=== PATIENT | female | born 1960 | race Caucasian/White ===

== ENCOUNTER 2016-11-18 10:04 | Day surgery (SDC) | payer OTHER ==
[~2016-11-18] VITALS: Ht 157.5 cm; Wt 72.6 kg
[~2016-11-18 10:04] MED LIST: ALBU8.5H3 INH; ASPI-664 PO; AZIT250T94 PO; CALC1TAB80 PO; CARAS PO; GEMF600T60 PO; OMEP20CA9 PO; PRED20TA PO; TRIA1TAB PO
[2016-11-18 10:54] VITALS: Ht 157.5 cm; Wt 72.6 kg
[2016-11-18] MEDS ORDERED: DETROL LA (11:16)
[2016-11-18] MEDS ORDERED: ASPIRIN (11:16)
[2016-11-18] MEDS ORDERED: HCTZ (11:16)
[2016-11-18] MEDS ORDERED: DULCOLAX (11:16)
[2016-11-18 11:29] VITALS: BP 122/77; PULSE 63; RESP 18
[2016-11-18] MEDS ORDERED: FENTAnyl 50 MCG/ML VIAL ONE (12:13)
[2016-11-18] MEDS ORDERED: MIDAZOLAM 1 MG/ML 2 ML INJ ONE ×2 (12:13)
[2016-11-18 12:44] VITALS: BP 118/73; PULSE 57; RESP 18
--- NOTE | 2016-11-18 16:35 | GILP ---
DATE OF PROCEDURE: 11/18/2016 NAME OF PROCEDURES: 1. Esophagogastroduodenoscopy and biopsy. 2. Colonoscopy and biopsy. SURGEON: Manrpeet Echeverria MD PREOPERATIVE DIAGNOSES: 1. Abdominal pain. 2. Change in the bowel habit. POSTOPERATIVE DIAGNOSES 1. Gastritis with erosions. 2. Gastric mucosal biopsies were taken for Helicobacter pylori test. 3. Colonoscopy all the way to the cecum. 4. Two small transverse colon polyps were removed using the biopsy forceps. 5. Internal hemorrhoids. INDICATION FOR THE PROCEDURE: Ms. Geeta Causey is a 56-year-old female patient who had upper abdo horace pain, not responding to therapy. She also noticed a change in the bowel habit. She had histo ry of colon polyps. The patient was scheduled for endoscopy and colonoscopy for further evaluation. The procedures and possible complications are well explained to the patient. She understood and con sented to the procedure. DESCRIPTION OF PROCEDURE: Under the influence of fentanyl and Versed, the gastroscope was carefully introduced into the esophagus and under direct vision, it was advanced to the stomach and through t he pylorus into the duodenal bulb and descending duodenum. FINDINGS: ESOPHAGUS: The mucosa was normal. STOMACH: The patient had gastritis with erosions. Gastric mucosal biopsies were taken for H. pylor i test. DUODENUM: Normal. The colonoscope was carefully introduced in the rectum and under direct vision, it was advanced all the way to the cecum. FINDINGS: The patient had 2 small transverse colon polyps and they were removed using the biopsy fo rceps. The patient was noted to have internal hemorrhoids. She tolerated the procedures very well and there was no complication from the procedures. At the en d of the procedures, she was awake with stable vital signs and she was discharged home to the care o f her family. IMPRESSION: Please see postoperative diagnoses. PLAN: 1. Omeprazole 40 mg p.o. q.a.m. 2. Linzess 145 mcg p.o. daily a.m. before breakfast. 3. Await histopathology reports. 4. Screening colonoscopy in 5 years. Dictated By: MANPREET SCHNEIDER/CARLY Conf#: [id number] DID#: [id number]
== END 2016-11-18 13:15 | disposition home or self-care (01) ==
LOC: GIL 10:04
PROVIDERS: ATTEND Internal Medicine Gastroenterology
DX: Z12.11 Encounter for screening for malignant neoplasm of colon (principal); D12.3 Benign neoplasm of transverse colon; K64.8 Other hemorrhoids; K29.60 Other gastritis without bleeding
CPT/HCPCS: 43239; 45380; 87081; 88305; J2250; J3010; Z7610

== ENCOUNTER 2017-08-10 08:44 | Emergency (ER) | payer OTHER ==
[~2017-08-10] VITALS: Ht 157.5 cm; Wt 74.0 kg
[~2017-08-10 08:44] MED LIST changes: -ALBU8.5H3 INH; +ASPIRIN; -AZIT250T94 PO; -CALC1TAB80 PO; -CARAS PO; +DETROL LA; +DULCOLAX; +HCTZ; -PRED20TA PO; -TRIA1TAB PO
[2017-08-10 08:47] VITALS: Ht 157.5 cm; Wt 74.0 kg
[2017-08-10] MEDS ORDERED: AZIT250T94 PO (09:30)
[2017-08-10] MEDS ORDERED: ALBU18HF INHALATION (09:30)
[2017-08-10] MEDS ORDERED: D-ME473S2 PO (09:31)
--- NOTE | 2017-08-10 10:00 | ERD ---
ER Documentation Chief Complaint Date/Time DATE: 08/10/17 TIME: 09:55 Chief Complaint cough and bodyache x 3 days HPI This patient is a 56-year-old female presenting to the emergency department with complaints of cough and body ache intermittently for the past 3 days. She states her symptoms began with body aches, however then she began with a nonproductive cough today. She reports chest pain only while coughing. She also feels some mild shortness of breath only when she has persistent coughing. She has had similar symptoms in the past. She has had intermittent subjective fevers at home. Symptoms have shown no improvement. She has been using ovok-dii-rjullvo medication with no relief of symptoms. She denies chest pain on exertion, dizziness, nausea, vomiting, diarrhea, urinary symptoms, or other symptoms currently. ROS All systems reviewed and are negative except as per history of present illness. Medications Home Meds Active Scripts Dextromethorphan Hb-Promethazine Hcl* (Promethazine DM* Syrup) 473 Ml Syrup, 5 ML PO Q6 Y for COUGH, #120 ML Prov:HIRO ARMSTRONG PA-C 08/10/17 Albuterol Sulfate* (Ventolin HFA*) 18 Gm Hfa.aer.ad, 2 PUFF INHALATION Q4H, #1 INHALER Prov:HIRO ARMSTRONG PA-C 08/10/17 Azithromycin* (Zithromax*) 250 Mg Tablet, 250 MG PO .ZPACK DIRECTED, #6 TAB TAKE 500 MG (2 TABS) THE FIRST DAY THEN 250 MG (1 TAB) DAYS 2-5 Prov:HIRO ARMSTRONG PA-C 08/10/17 Omeprazole* (Prilosec*) 20 Mg Capsule., 20 MG PO DAILY for gastritis, #30 CAP Prov:TEODORO GAO 05/27/15 Reported Medications [Detrol La] No Conflict Check 11/18/16 [Dulcolax] No Conflict Check 11/18/16 [Aspirin] No Conflict Check 11/18/16 [Hctz] No Conflict Check 11/18/16 Aspirin (Low Dose Aspirin) 81 Mg Tablet., 81 MG PO DAILY, #30 TAB 06/25/16 Gemfibrozil* (Gemfibrozil*) 600 Mg Tablet, 600 MG PO BID, TAB 04/16/15 Allergies Allergies: Coded Allergies: No Known Allergy (Unverified , 06/25/16) PMhx/Soc History of Surgery: Yes (C-SEC X4) Anesthesia Reaction: No Hx Neurological Disorder: No Hx Respiratory Disorders: No Hx Cardiac Disorders: No Hx Psychiatric Problems: No Hx Miscellaneous Medical Probl: Yes (HTN,HYPERLIPIDEMIA,) Hx Alcohol Use: No Hx Substance Use: No Hx Tobacco Use: No Smoking Status: Never smoker Physical Exam Vitals Vital Signs Date Time Temp Pulse Resp B/P Pulse Ox O2 Delivery O2 Flow Rate FiO2 08/10/17 08:47 98.5 82 18 120/81 99 Physical Exam Const: Toxic, well-appearing female in no acute distress. Head: Atraumatic Eyes: Normal Conjunctiva ENT: Normal External Ears, Nose and Mouth. Neck: Full range of motion..~ No meningismus. Resp: Patient is actively coughing during examination. Mild inspiratory rhonchi noted to bilateral upper lung gonzalez but no crackles. No signs of respiratory distress. Normal inspiratory effort. Cardio: Regular rate and rhythm, no murmurs Skin: No petechiae or rashes Ext: No cyanosis, or edema Neur: Awake and alert Psych: Normal Mood and Affect Procedures/MDM 56-year-old female presenting to the emergency department with complaints of cough and body aches. Vital signs are stable. The patient is afebrile. The patient is 99% on room air. Physical examination is otherwise unremarkable. The patient did admit to some shortness of breath and chest pain but only while coughing. The patient did have an active cough on exam with some inspiratory rhonchi. I believe the patient's chest discomfort and shortness of breath is solely related to her bronchitis and I have very low suspicion for pneumothorax , pulmonary embolism, acute coronary syndrome, aortic dissection, or other significant or life-threatening pathology. I do not feel that further cardiac workup was indicated at this time. The patient was stable for outpatient management with a prescription for azithromycin, Ventolin inhaler, and Promethazine DM. She agreed with the discharge plan a diagnosis. She was advised to return immediately for new or worsening symptoms. She was advised to follow-up with her primary care physician within the next 1-2 days. Departure Diagnosis: Primary Impression: Bronchitis Additional Impression: Cough Condition: Fair Patient Instructions: Bronchitis, Antiobiotic Treatment (Adult) Additional Instructions: No mas mejor en 2-3 [place], regresar. Mas peor en 24 horas, regresear rapidamente. Ir a doctor primario in 5-7 [place]. Usar instrucciones cuando navneet medicamento. HIRO ARMSTRONG PA-C Aug 10, 2017 10:00
== END 2017-08-10 09:48 | disposition home or self-care (01) ==
LOC: FTE 08:44
DX: J20.9 Acute bronchitis, unspecified (principal); I10 Essential (primary) hypertension
CPT/HCPCS: 99284

== ENCOUNTER 2017-10-31 08:31 | Emergency (ER) | payer OTHER ==
[~2017-10-31] VITALS: Ht 157.5 cm; Wt 74.6 kg
[~2017-10-31 08:31] MED LIST changes: +ALBU18HF INHALATION; +AZIT250T94 PO; +D-ME473S2 PO
[2017-10-31 08:34] VITALS: Ht 157.5 cm; Wt 74.6 kg
[2017-10-31] MEDS ORDERED: morphine 4 MG/ML VIAL IV STA (09:01)
[2017-10-31] MEDS ORDERED: ONDANSETRON 4 MG INJ IV STA (09:01)
[2017-10-31 09:49] LABS: BASOPHILS % 0.4 % (0.0-2.0); EOSINOPHILS # 0.1 10^3/ul (0.0-0.5); EOSINOPHILS % 1.2 % (0.0-7.0); HEMATOCRIT 34.7 % (37.0-47.0); HEMOGLOBIN 12.1 g/dl (12.0-16.0); LYMPHOCYTES # 1.6 10^3/ul (0.8-2.9); LYMPHOCYTES % 32.5 % (15.0-51.0); MEAN CORPUSCULAR HEMOGLOBIN 30.6 pg (29.0-33.0); MEAN CORPUSCULAR HGB CONC 34.9 g/dl (32.0-37.0); MEAN CORPUSCULAR VOLUME 87.6 fl (82.0-101.0); MEAN PLATELET VOLUME 10.3 fl (7.4-10.4); MONOCYTE # 0.5 10^3/ul (0.3-0.9); MONOCYTES % 10.4 % (0.0-11.0); NEUTROPHIL # 2.8 10^3/ul (1.6-7.5); NEUTROPHILS % 55.3 % (39.0-77.0); PLATELET COUNT 247 10^3/UL (140-415); RED BLOOD COUNT 3.96 10^6/ul (4.20-5.40); RED CELL DISTRIBUTION WIDTH 12.7 % (11.5-14.5)
[2017-10-31 10:28] LABS: ALANINE AMINOTRANSFERASE 77 IU/L (13-69); ALBUMIN 3.7 g/dl (3.3-4.9); ALBUMIN/GLOBULIN RATIO 1.12; ALKALINE PHOSPHATASE 72 IU/L (42-121); ANION GAP 12 (8-16); ASPARTATE AMINO TRANSFERASE 59 IU/L (15-46); BILIRUBIN,INDIRECT 0.2 mg/dl (0-1.1); BILIRUBIN,TOTAL 0.2 mg/dl (0.2-1.3); BLOOD UREA NITROGEN 13 mg/dl (7-20); CALCIUM 9.1 mg/dl (8.4-10.2); CARBON DIOXIDE 28 mmol/L (21-31); CHLORIDE 107 mmol/L (97-110); CREATININE 0.85 mg/dl (0.44-1.00); GLUCOSE 113 mg/dl (70-220); POTASSIUM 3.2 mmol/L (3.5-5.1); SODIUM 144 mmol/L (135-144)
--- NOTE | 2017-10-31 10:32 | RADRPT ---
PROCEDURE: CT ABDOMEN AND PELVIS WITHOUT CONTRAST. CLINICAL INDICATION: Left groin pain with nausea and vomiting. History of right groin hernia repai r. TECHNIQUE: CT scan of the abdomen and pelvis without contrast was performed on a multidetector hig h-resolution CT scanner. The patient was scanned without intravenous contrast. Coronal and sagittal reformatted images were obtained from the axial source images. Images were reviewed on a high-resol [employer] PACS workstation. The total exam CTDI equals 11.9 mGy and the total exam DLP equals 660 8 mGy- cm. One or more of the following dose reduction techniques were used: Automated exposure control. Adjustment of the mA and/or kV according to patient size. Use of iterative reconstruction technique. DICOM images are available COMPARISON: None FINDINGS: CT abdomen: The lung bases are clear. The heart size is within limits. There is no significant pericardial effus ion. Hepatic morphology is within normal limits. There is diffuse fatty infiltration of the liver. Status post cholecystectomy. No evidence of intrahepatic or extrahepatic biliary dilatation. The spleen and pancreas are within limits. Both adrenal glands are within normal limits. Both kidneys are in normal anatomic position. No evidence of obstruction or hydronephrosis. No gross renal/ureteric calculi. The visualized GI tract demonstrate normal caliber loops of small and large bowel. No evidence of fany wel obstruction. The appendix is within normal limits. Mild atherosclerotic calcification of the aorta is identified. There is no significant retroperitone al lymphadenopathy. CT pelvis: The bladder is within normal limits. The rectosigmoid colon unremarkable. The uterus is within victorina l limits. No significant free fluid. No significant pelvic lymphadenopathy. The visualized osseous structures demonstrate mild degenerative changes of the spine. IMPRESSION: 1. No evidence of acute intra-abdominal/pelvic inflammatory process. No evidence of bowel obstructio n. The appendix is within normal limits. 2. Fatty liver. Status post cholecystectomy. 3. No gross abnormal inguinal hernias. No evidence of free fluid or free air. No gross focal fluid c ollections. 4. Mild sigmoid diverticulosis. RPTAT: AAPP Physician Talat Date Time Electronically viewed and signed by Physician Talat on 10/31/2017 10:32 MO/
[2017-10-31 10:34] LABS: ADD UMIC YES; UR ASCORBIC ACID NEGATIVE (NEGATIVE); UR BILIRUBIN (Dip) NEGATIVE (NEGATIVE); UR BLOOD (Dip) 2+ mg/dL (NEGATIVE); UR CLARITY SLIGHTLY CLOUDY (CLEAR); UR COLOR YELLOW (YELLOW); UR GLUCOSE (Dip) NEGATIVE (NEGATIVE); UR KETONES (Dip) NEGATIVE (NEGATIVE); UR LEUKOCYTE ESTERASE (Dip) NEGATIVE Leu/ul (NEGATIVE); UR MUCUS MODERATE /HPF (NONE SEEN); UR NITRITE (Dip) NEGATIVE (NEGATIVE); UR RBC 38 /HPF (0-5); UR SPECIFIC GRAVITY (Dip) 1.024 (1.003-1.030); UR SQUAMOUS EPITHELIAL CELL FEW /HPF (FEW); UR TOTAL PROTEIN (Dip) 1+ mg/dl (NEGATIVE); UR UROBILINOGEN (Dip) 1+ mg/dL (NEGATIVE)
[2017-10-31 10:40] LABS: TROPONIN-I < 0.012 ng/ml (0.00-0.12)
[2017-10-31] MEDS ORDERED: ONDA4TAB14 PO (11:02)
[2017-10-31] MEDS ORDERED: HYDR-902 PO (11:02)
[2017-10-31] MEDS ORDERED: HYDROmorphONE 1 MG/ML SYG IV STA (11:05)
[2017-10-31 11:53] VITALS: BP 120/79; PULSE 73; RESP 16; TEMP 97.8
--- NOTE | 2017-10-31 11:56 | ERD ---
ER Documentation Chief Complaint Chief Complaint Pt with R sided AP, vomiting and diarrhea X 3 days. HPI Patient is a 57-year-old female with gastritis and hypertension who presents with vomiting and diarrhea. Her symptoms started on Tuesday. She now is right upper quadrant abdominal pain. The pain is been constant and sharp in nature. She has no fevers. She has had no treatment as of yet. Upon review of old medical records this is the patient's ninth visit to the ER since 2013. Her primary doctor is Dr. Morales. ROS All systems reviewed and are negative except as per history of present illness. Medications Home Meds Active Scripts Ondansetron (Ondansetron Odt) 4 Mg Tab.rapdis, 4 MG PO Q6H Y for NAUSEA AND/OR VOMITING, #10 TAB Prov:XOCHITL DODSON MD 10/31/17 Hydrocodone/Acetaminophen ([place] 10-325 Tablet) 1 Each Tablet, 1 TAB PO Q6H Y for PAIN, #7 TAB Prov:XOCHITL DODSON MD 10/31/17 Dextromethorphan Hb-Promethazine Hcl* (Promethazine DM* Syrup) 473 Ml Syrup, 5 ML PO Q6 Y for COUGH, #120 ML Prov:HIRO ARMSTRONG PA-C 08/10/17 Albuterol Sulfate* (Ventolin HFA*) 18 Gm Hfa.aer.ad, 2 PUFF INHALATION Q4H, #1 INHALER Prov:HIRO ARMSTRONG PA-C 08/10/17 Azithromycin* (Zithromax*) 250 Mg Tablet, 250 MG PO .ZPACK DIRECTED, #6 TAB TAKE 500 MG (2 TABS) THE FIRST DAY THEN 250 MG (1 TAB) DAYS 2-5 Prov:HIRO ARMSTRONG PA-C 08/10/17 Omeprazole* (Prilosec*) 20 Mg Capsule., 20 MG PO DAILY for gastritis, #30 CAP Prov:TEODORO GAO 05/27/15 Reported Medications [Detrol La] No Conflict Check 11/18/16 [Dulcolax] No Conflict Check 11/18/16 [Aspirin] No Conflict Check 11/18/16 [Hctz] No Conflict Check 11/18/16 Aspirin (Low Dose Aspirin) 81 Mg Tablet., 81 MG PO DAILY, #30 TAB 06/25/16 Gemfibrozil* (Gemfibrozil*) 600 Mg Tablet, 600 MG PO BID, TAB 04/16/15 Allergies Allergies: Coded Allergies: No Known Allergy (Unverified , 06/25/16) PMhx/Soc History of Surgery: Yes (C-SEC X4) Anesthesia Reaction: No Hx Neurological Disorder: No Hx Respiratory Disorders: No Hx Cardiac Disorders: No Hx Psychiatric Problems: No Hx Miscellaneous Medical Probl: Yes (HTN,HYPERLIPIDEMIA,) Hx Alcohol Use: No Hx Substance Use: No Hx Tobacco Use: No Smoking Status: Former smoker FmHx Family History: No diabetes Physical Exam Vitals Vital Signs Date Time Temp Pulse Resp B/P Pulse Ox O2 Delivery O2 Flow Rate FiO2 10/31/17 08:34 98.0 83 16 143/81 97 Physical Exam Const: Mild distress secondary to pain Head: Atraumatic Eyes: Normal Conjunctiva ENT: Normal External Ears, Nose and Mouth. Neck: Full range of motion..~ No meningismus. Resp: Clear to auscultation bilaterally Cardio: Regular rate and rhythm, no murmurs Abd: Soft, tenderness to palpation without rebound or guarding Skin: No petechiae or rashes Back: No midline or flank tenderness Ext: No cyanosis, or edema Neur: Awake and alert Psych: Normal Mood and Affect Result Diagram: 10/31/17 0935 10/31/17 0935 Results 24 hrs Laboratory Tests Test 10/31/17 09:35 10/31/17 10:00 White Blood Count 5.010^3/ul Red Blood Count 3.9610^6/ul Hemoglobin 12.1g/dl Hematocrit 34.7% Mean Corpuscular Volume 87.6fl Mean Corpuscular Hemoglobin 30.6pg Mean Corpuscular Hemoglobin Concent 34.9g/dl Red Cell Distribution Width 12.7% Platelet Count 47606^3/UL Mean Platelet Volume 10.3fl Neutrophils % 55.3% Lymphocytes % 32.5% Monocytes % 10.4% Eosinophils % 1.2% Basophils % 0.4% Nucleated Red Blood Cells % 0.0/100WBC Neutrophils # 2.810^3/ul Lymphocytes # 1.610^3/ul Monocytes # 0.510^3/ul Eosinophils # 0.110^3/ul Basophils # 0.010^3/ul Nucleated Red Blood Cells # 0.010^3/ul Sodium Level 144mmol/L Potassium Level 3.2mmol/L Chloride Level 107mmol/L Carbon Dioxide Level 28mmol/L Anion Gap 12 Blood Urea Nitrogen 13mg/dl Creatinine 0.85mg/dl Glucose Level 113mg/dl Calcium Level 9.1mg/dl Total Bilirubin 0.2mg/dl Direct Bilirubin 0.00mg/dl Indirect Bilirubin 0.2mg/dl Aspartate Amino Transf (AST/SGOT) 59IU/L Alanine Aminotransferase (ALT/SGPT) 77IU/L Alkaline Phosphatase 72IU/L Troponin I < 0.012ng/ml Total Protein 7.0g/dl Albumin 3.7g/dl Globulin 3.30g/dl Albumin/Globulin Ratio 1.12 Lipase 143U/L Urine Color YELLOW Urine Clarity SLIGHTLY CLOUDY Urine pH 5.0 Urine Specific [place] 1.024 Urine Ketones NEGATIVEmg/dL Urine Nitrite NEGATIVEmg/dL Urine Bilirubin NEGATIVEmg/dL Urine Urobilinogen 1+mg/dL Urine Leukocyte Esterase NEGATIVELeu/ul Urine Microscopic RBC 38/HPF Urine Microscopic WBC 6/HPF Urine Squamous Epithelial Cells FEW/HPF Urine Calcium Oxalate Crystals FEW/HPF Urine Mucus MODERATE/HPF Urine Hemoglobin 2+mg/dL Urine Glucose NEGATIVEmg/dL Urine Total Protein 1+mg/dl Current Medications Medications (Trade) Dose Ordered Sig/Deepak Route PRN Reason Start Time Stop Time Status Last Admin Dose Admin Morphine Sulfate (morphine) 4 mg ONCE STAT IV 10/31/17 09:01 10/31/17 09:02 DC 10/31/17 09:41 Ondansetron HCl (Zofran Inj) 4 mg ONCE STAT IV 10/31/17 09:01 10/31/17 09:02 DC 10/31/17 09:41 Hydromorphone HCl (Dilaudid) 1 mg ONCE STAT IV 10/31/17 11:05 10/31/17 11:06 DC 10/31/17 11:11 Procedures/MDM CT abdomen pelvis negative for surgical process per radiology. EKG read by me: Rate/Rhythm: Regular rate and rhythm at a normal rate Intervals: Normal Impression: No evidence of ischemia or arrhythmia Patient is a 57-year-old female with hypertension and gastritis who presents with vomiting and diarrhea as well as abdominal pain. Laboratory studies were basically normal. The patient had a CT scan which showed no surgical process. The patient will be discharged with prescription for [place] and Zofran. She can return for any worsening symptoms. I doubt acute coronary syndrome, appendicitis, pancreatitis, cholecystitis, or bowel obstruction. Departure Diagnosis: Primary Impression: Abdominal pain Abdominal location: generalized Qualified Code: R10.84 - Generalized abdominal pain Condition: Fair Patient Instructions: Abdominal Pain Referrals: CELIA MORALES (PCP) Additional Instructions: Visite a wong ihsan cohen para un EXAMEN.Regrese a estas instalaciones si no se mejora rodney esperbamos o rodney le connors. XOCHITL DODSON MD Oct 31, 2017 11:56
== END 2017-10-31 11:59 | disposition home or self-care (01) ==
LOC: E/R 08:31
DX: R10.84 Generalized abdominal pain (principal); I10 Essential (primary) hypertension; R40.2142 Coma scale, eyes open, spontaneous, at arrival to emergency department; R40.2252 Coma scale, best verbal response, oriented, at arrival to emergency department; R40.2362 Coma scale, best motor response, obeys commands, at arrival to emergency department; Z87.891 Personal history of nicotine dependence; Z79.82 Long term (current) use of aspirin
CPT/HCPCS: 36415; 74176; 80053; 81001; 83690; 84484; 85025; 93005; 96374; 96375; J1170; J2270; J2405; Z7502

== ENCOUNTER 2018-02-18 17:40 | Emergency (ER) | END 2018-02-18 18:43 | disposition home or self-care (01) ==

== ENCOUNTER 2018-03-28 14:24 | Emergency (ER) | END 2018-03-28 16:27 | disposition home or self-care (01) ==

== ENCOUNTER 2019-01-22 17:28 | Emergency (ER) | payer OTHER ==
[~2019-01-22] VITALS: Ht 167.6 cm; Wt 74.1 kg
[~2019-01-22 17:28] MED LIST changes: +ALBU2.5V3 NEB; -ASPI-664 PO; +ASPI81TA52 PO; +AZIT250T PO; -AZIT250T94 PO; +BENZ200C68 PO; +FLUT9.9S NASAL; -GEMF600T60 PO; +GEMF600T8 PO; +HYDR-3980 PO; +LORA10CA PO; +MED4DP PO; +ONDA4TAB14 PO; +[UNRECOGNIZED DRUG - CODE] MC
[2019-01-22 17:44] VITALS: Ht 167.6 cm; Wt 74.1 kg
[2019-01-22] MEDS ORDERED: SOD CHLORIDE 0.9% 500 ML IV STA (21:45)
[2019-01-22] MEDS ORDERED: ONDANSETRON 4 MG INJ IV STA (21:45)
[2019-01-22] MEDS ORDERED: morphine 4 MG/ML VIAL IV STA (21:45)
[2019-01-22] MEDS ORDERED: LEVO50TA7 PO (22:30)
[2019-01-22] MEDS ORDERED: TRIA1CAP PO (22:30)
--- NOTE | 2019-01-22 23:22 | ERD ---
ER Documentation Chief Complaint Chief Complaint Complains of abdominal pain x 3 days HPI Is a 4-year-old female complains of epigastric abdominal pain for the past 3 days along with constipation. Pain is mild to moderate intensity no exacerbating relieving factors. Denies fevers or chills. Mild nausea but no vomiting. Pain colicky in nature. No exacerbating alleviating factors. Denies chest pain nausea vomiting fevers chills or shortness of breath. ROS All systems reviewed and are negative except as per history of present illness. Medications Home Meds Reported Medications Triamterene/Hydrochlorothiazid (Dyazide 37.5-25 Capsule) 1 Each Capsule, 1 EACH PO DAILY, CAP 01/22/19 Levothyroxine Sodium* (Levothyroxine Sodium*) 50 Mcg Tablet, 50 MCG PO BEFORE BREAKFAST, #30 TAB 01/22/19 Discontinued Reported Medications [Detrol La] No Conflict Check 11/18/16 [Dulcolax] No Conflict Check 11/18/16 [Aspirin] No Conflict Check 11/18/16 [Hctz] No Conflict Check 11/18/16 Aspirin (Low Dose Aspirin) 81 Mg Tablet.dr, 81 MG PO DAILY, #30 TAB 06/25/16 Gemfibrozil* (Gemfibrozil*) 600 Mg Tablet, 600 MG PO BID, TAB 04/16/15 Discontinued Scripts Nebulizer and Compressor ([place] Choice Nebulizer) 1 Each Each, 1 EACH MC, #1 Prov:HIRO ARMSTRONG PA-C 03/28/18 Loratadine* (Claritin*) 10 Mg Capsule, 10 MG PO DAILY, #30 CAP Prov:HIRO ARMSTRONG PA-C 03/28/18 Fluticasone Propionate (Flonase Allergy Relief) 9.9 Ml Wiggins.susp, 1 SPRAY NASAL BID, #1 BOTTLE TO EACH NOSTRIL Prov:HIRO ARMSTRONG PA-C 03/28/18 Albuterol Sulfate* (Albuterol Sulfate* Neb) 0.083%-3 Ml Neb, 2.5 MG NEB Q4 PRN for SHORTNESS OF BREATH, #30 EA Prov:HIRO ARMSTRONG PA-C 03/28/18 Albuterol Sulfate* (Ventolin HFA*) 18 Gm Hfa.aer.ad, 2 PUFF INHALATION Q4H, #1 INHALER Prov:HIRO ARMSTRONG PA-C 03/28/18 Benzonatate* (Benzonatate*) 200 Mg Capsule, 200 MG PO TID PRN for COUGH, #15 CAP Prov:HIRO ARMSTRONG PA-C 03/28/18 Benzonatate* (Benzonatate*) 200 Mg Capsule, 200 MG PO TID PRN for COUGH, #15 CAP Prov:HIRO ARMSTRONG PA-C 02/18/18 Methylprednisolone* (Medrol* DOSE PACK) 4 Mg/Dose-Pack Tab.ds.pk, 4 MG PO . DIRECTED, #1 PACKET Prov:HIRO ARMSTRONG PA-C 02/18/18 Albuterol Sulfate* (Ventolin HFA*) 18 Gm Hfa.aer.ad, 2 PUFF INHALATION Q4H, #1 INHALER Prov:HIRO ARMSTRONG PA-C 02/18/18 Azithromycin* (Zithromax*) 250 Mg Tablet, 250 MG PO .MUSA DIRECTED, #6 TAB TAKE 500 MG (2 TABS) THE FIRST DAY THEN 250 MG (1 TAB) DAYS 2-5 Prov:HIRO ARMSTRONG PA-C 02/18/18 Ondansetron (Ondansetron Odt) 4 Mg Tab.rapdis, 4 MG PO Q6H PRN for NAUSEA AND/OR VOMITING, #10 TAB Prov:XOCHITL DODSNO MD 10/31/17 Hydrocodone/Acetaminophen ([place] 10-325 Tablet) 1 Each Tablet, 1 TAB PO Q6H PRN for PAIN, #7 TAB Prov:XOCHITL DODSON MD 10/31/17 Dextromethorphan Hb-Promethazine Hcl* (Promethazine DM* Syrup) 473 Ml Syrup, 5 ML PO Q6 PRN for COUGH, #120 ML Prov:HIRO ARMSTRONG PA-C 08/10/17 Albuterol Sulfate* (Ventolin HFA*) 18 Gm Hfa.aer.ad, 2 PUFF INHALATION Q4H, #1 INHALER Prov:HIRO ARMSTRONG PA-C 08/10/17 Azithromycin* (Zithromax*) 250 Mg Tablet, 250 MG PO .SrinivasanPAINOCENCIA DIRECTED, #6 TAB TAKE 500 MG (2 TABS) THE FIRST DAY THEN 250 MG (1 TAB) DAYS 2-5 Prov:HIRO ARMSTRONG PA-C 08/10/17 Omeprazole* (Prilosec*) 20 Mg Capsule.dr, 20 MG PO DAILY for gastritis, #30 CAP Prov:TEODORO GAO 05/27/15 Allergies Allergies: Coded Allergies: No Known Allergy (Unverified , 01/22/19) PMhx/Soc History of Surgery: Yes (C-SEC X4) Anesthesia Reaction: No Hx Neurological Disorder: No Hx Respiratory Disorders: No Hx Cardiac Disorders: No Hx Psychiatric Problems: No Hx Miscellaneous Medical Probl: Yes (HTN,HYPERLIPIDEMIA, hypothyroid) Hx Alcohol Use: No Hx Substance Use: No Hx Tobacco Use: No Smoking Status: Never smoker Physical Exam Vitals Vital Signs Date Temp Pulse Resp B/P (MAP) Pulse Ox O2 O2 Flow FiO2 Time Delivery Rate 01/22/19 98.6 74 20 136/74 97 17:44 (94) Physical Exam Const: No acute distress Head: Atraumatic Eyes: Normal Conjunctiva ENT: Normal External Ears, Nose and Mouth. Neck: Full range of motion. No meningismus. Resp: Clear to auscultation bilaterally Cardio: Regular rate and rhythm, no murmurs Abd: Soft, non tender, non distended. Normal bowel sounds Skin: No petechiae or rashes Back: No midline or flank tenderness Ext: No cyanosis, or edema Neur: Awake and alert Psych: Normal Mood and Affect Result Diagram: 01/22/19215301/22/192153 Results 24 hrs Laboratory Tests Test 01/22/19 21:54 White Blood Count 6.8 10^3/ul Red Blood Count 4.13 10^6/ul Hemoglobin 12.6 g/dl Hematocrit 37.3 % Mean Corpuscular Volume 90.3 fl Mean Corpuscular Hemoglobin 30.5 pg Mean Corpuscular Hemoglobin Concent 33.8 g/dl Red Cell Distribution Width 13.2 % Platelet Count 240 10^3/UL Mean Platelet Volume 10.3 fl Immature Granulocytes % 0.300 % Neutrophils % 47.2 % Lymphocytes % 39.2 % Monocytes % 10.1 % Eosinophils % 2.8 % Basophils % 0.4 % Nucleated Red Blood Cells % 0.0 /100WBC Immature Granulocytes # 0.020 10^3/ul Neutrophils # 3.2 10^3/ul Lymphocytes # 2.7 10^3/ul Monocytes # 0.7 10^3/ul Eosinophils # 0.2 10^3/ul Basophils # 0.0 10^3/ul Nucleated Red Blood Cells # 0.0 10^3/ul Urine Color YELLOW Urine Clarity CLEAR Urine pH 6.0 Urine Specific [place] 1.017 Urine Ketones NEGATIVE mg/dL Urine Nitrite NEGATIVE mg/dL Urine Bilirubin NEGATIVE mg/dL Urine Urobilinogen NEGATIVE mg/dL Urine Leukocyte Esterase NEGATIVE Deanna/ul Urine Microscopic RBC 10 /HPF Urine Microscopic WBC 0 /HPF Urine Squamous Epithelial Cells FEW /HPF Urine Hemoglobin 1+ mg/dL Urine Glucose NEGATIVE mg/dL Urine Total Protein NEGATIVE mg/dl Sodium Level 141 mmol/L Potassium Level 3.6 mmol/L Chloride Level 100 mmol/L Carbon Dioxide Level 32 mmol/L Anion Gap 9 Blood Urea Nitrogen 21 mg/dl Creatinine 0.93 mg/dl Est Glomerular Filtrat Rate mL/min > 60 mL/min Glucose Level 94 mg/dl Calcium Level 10.3 mg/dl Total Bilirubin 0.3 mg/dl Direct Bilirubin 0.00 mg/dl Indirect Bilirubin 0.3 mg/dl Aspartate Amino Transf (AST/SGOT) 37 IU/L Alanine Aminotransferase (ALT/SGPT) 28 IU/L Alkaline Phosphatase 83 IU/L Troponin I < 0.012 ng/ml Total Protein 7.8 g/dl Albumin 4.3 g/dl Globulin 3.50 g/dl Albumin/Globulin Ratio 1.22 Lipase 149 U/L Current Medications Medications Dose Sig/Deepak Start Time Status Last (Trade) Ordered Route PRN Stop Time Admin Dose Reason Admin Sodium 500 ml @ Q1H STAT 01/22/19 DC 01/22/19 Chloride 500 mls/hr IV 21:45 22:33 01/22/19 22:44 Morphine 4 mg ONCE STAT 01/22/19 DC Sulfate IV 21:45 (morphine) 01/22/19 21:46 Ondansetron 4 mg ONCE STAT 01/22/19 DC 01/22/19 HCl (Zofran IV 21:45 22:33 Inj) 01/22/19 21:46 Procedures/MDM Emergency room course: Patient seen on the charge nurse. Placed in bed from evaluation. A stat EKG and stat chest x-ray. Presently has gotten clinically worse with oximetry. Given morphine for pain control. Also had a stat CT scan of the abdomen and pelvis. Diagnostic data: EKG: Rate/Rhythm: [Normal Sinus Rhythm] QRS, ST, T-waves: [No changes consistent w/ acute ischemia] Impression: [No evidence of ischemia or arrhythmia] Chest X-ray 1V Interpreted by me: Soft Tissue: No acute abnormalities Bones: No acute abnormalities Mediastinum/Cardiac Silhouette/Lungs: [No acute abnormalities] Medical decision making: Patient's gastrointestinal symptoms have stabilized while in the department. No evidence of severe dehydration, sepsis, or surgical abdomen. Extensive discussion with family and patient that occult disease cannot be ruled out. 8 hour recheck for repeat abdominal exam is planned. Departure Diagnosis: Primary Impression: Abdominal pain Abdominal location: unspecified location Qualified Codes: R10.9 - Unspecified abdominal pain Condition: Stable HIRO HEWITT Jan 22, 2019 23:22
[2019-01-22] MEDS ORDERED: RANI150T35 PO (23:23)
[2019-01-22] MEDS ORDERED: DOCU-144 PO (23:23)
[2019-01-23 00:25] VITALS: BP 129/76; PULSE 58; RESP 13
== END 2019-01-23 00:48 | disposition home or self-care (01) ==
LOC: E/R 17:28
DX: R10.13 Epigastric pain (principal); I10 Essential (primary) hypertension; E03.9 Hypothyroidism, unspecified; Z79.82 Long term (current) use of aspirin
CPT/HCPCS: 36415; 71045; 74176; 80053; 81001; 83690; 84484; 85025; 93005; 96374; J2405; J7040; Z7502